=== PATIENT | female | born 1935 | race African-American/Black ===

== ENCOUNTER 2024-09-27 10:33 | Emergency (ER) | payer MEDICARE ==
[~2024-09-27] VITALS: Ht 157.5 cm; Wt 61.0 kg
[2024-09-27 10:44] VITALS: TEMP 98.3; O2SAT 99
[2024-09-27 11:56] LABS: CHLORIDE 112 mEq/L (98-107); POTASSIUM 3.6 mEq/L (3.5-5.1); SODIUM 144 mEq/L (136-145)
[2024-09-27 11:57] LABS: BASOPHILS % 0.5 % (0.0-2.0); CALCIUM 9.3 mg/dL (8.7-10.4); CARBON DIOXIDE 25 mEq/L (21-32); EOSINOPHILS % 1.1 % (0.0-5.0); HEMATOCRIT. 38.4 % (36.0-48.0); HEMOGLOBIN. 12.4 g/dL (12.0-16.0); LYMPHOCYTES % 20.9 % (20.0-50.0); MEAN CORPUSCULAR HEMOGLOBIN 27.1 pg (28.0-32.0); MEAN CORPUSCULAR HGB CONC 32.2 g/dL (31.0-37.0); MEAN CORPUSCULAR VOLUME 84.1 fL (81.0-99.0); MEAN PLATELET VOLUME 7.4 fl (7.4-10.4); MONOCYTES % 8.2 % (2.0-8.0); NEUTROPHILS % 69.3 % (40.0-76.0); PLATELET 252 x1000/uL (130-400); RED BLOOD CELL COUNT 4.57 mill/uL (4.2-5.4); RED CELL DISTRIBUTION WIDTH 13.5 % (11.6-14.6); WHITE BLOOD COUNT 3.8 x1000/uL (4.5-11.0)
[2024-09-27 12:02] LABS: CREATININE 0.8 mg/dL (0.6-1.0); GLUCOSE 108 mg/dL (70-105); UREA NITROGEN BLOOD 11 mg/dL (9-23)
[2024-09-27 12:30] LABS: TROPONIN I HIGH SENSITIVITY 9 ng/L (3.0-34)
[2024-09-27 12:31] LABS: ALANINE AMINOTRANSFERASE 17 IU/L (10-49); ALBUMIN 4.2 g/dL (3.2-4.8); ASPARTATE AMINOTRANSFERASE 26 IU/L (<34); BILIRUBIN DIRECT 0.1 mg/dL (<=3.0); BILIRUBIN TOTAL 0.6 mg/dL (0.1-1.0)
[2024-09-27 12:32] LABS: PROTEIN TOTAL 6.8 g/dL (6.0-8.3)
[2024-09-27 13:24] VITALS: BP 146/68; PULSE 70; RESP 15; O2SAT 99
== END 2024-09-27 13:24 | disposition home or self-care (01) ==
LOC: ER 10:33
DX: I10 Essential (primary) hypertension (principal)
CPT/HCPCS: 36415; 80048; 80076; 84484; 85025; 93005; 99284